=== PATIENT | female | born 1975 | race Caucasian/White ===

== ENCOUNTER 2021-02-05 23:34 | Emergency (ER) | payer BC ==
[~2021-02-05] VITALS: Ht 160 cm; Wt 65.3 kg
[2021-02-06] MEDS ORDERED: DEXAMETHASONE SOD PHOSPHATE 4 MG INJ IM ONE (00:15)
[2021-02-06] MEDS ORDERED: DEXAMETHASONE SOD PHOSPHATE 10 MG INJ ONE (00:17)
[2021-02-06 00:34] LABS: HEMATOCRIT 43.2 % (31.2-41.9); MEAN CORPUSCULAR HEMOGLOBIN 32.9 uug (24.7-32.8); PLATELET COUNT (AUTO) 438 K/uL (179-408)
[2021-02-06 00:37] LABS: CREATININE 0.9 mg/dL (0.6-1.3); POTASSIUM 4.1 mmol/L (3.5-5.1)
[2021-02-06] MEDS ORDERED: DIPH25CA83 PO (00:48)
--- NOTE | 2021-02-06 00:50 | NUR ---
Patient discharged to home in stable condition. Written and verbal after care instructions given. Patient verbalizes understanding of instructions. Stressed follow up or return to ER for worsening s/s.
[2021-02-06 01:18] VITALS: BP 128/79
== END 2021-02-06 00:55 | disposition home or self-care (01) ==
LOC: ER 02-06
DX: L50.9 Urticaria, unspecified (principal); F17.210 Nicotine dependence, cigarettes, uncomplicated; L40.9 Psoriasis, unspecified
CPT/HCPCS: 36415; 80048; 85025; 96372; 99283; J1100; A4663